=== PATIENT | male | born 1940 | race Caucasian/White ===

== ENCOUNTER 2016-07-06 20:03 | Observation (INO) | payer MEDICARE ==
[2016-07-06 20:04] VITALS: BP 172/83; PULSE 127; RESP 16; TEMP 98.4; O2SAT 100
[2016-07-06 20:25] VITALS: BP 148/79; PULSE 126; RESP 22; O2SAT 98
[2016-07-06] MEDS ORDERED: DILTIAZEM HCL 25 MG/5 ML VIAL IV ONE (20:30)
--- NOTE | 2016-07-06 20:39 | PD ---
HPI Chief Complaint: Cardiac Complaint Time Seen by Provider: 20:15 Travel History International Travel<30 days: No Contact w/Intl Traveler<30days: No History of Present Illness HPI 76-year-old male complains of rapid heartbeat. Patient states that he was eating and started having a lot of burping and started having substernal chest discomfort. Patient denies any chest pain radiation. Patient denies any nausea diaphoresis. Patient has history of atrial fibrillation status post ablation procedure in December 2015. Patient has history of CAD status post stents placement. Patient's on Coumadin. Patient also has history hypertension , diabetes, hyperlipidemia. Patient is a nonsmoker. Patient denies any history of ND. Patient states that the chest discomfort lasted about 2 hours and resolved completely now. Patient denies any chest discomfort now. PFSH Past Medical History Hx Anticoagulant Therapy: Yes Cardiovascular Problems: Yes Coronary Artery Disease: Yes Diabetes: Yes (type II) Patient Takes Glucophage: No Diverticulitis: Yes Pancreatitis: Yes Tetanus Vaccination: Unknown Influenza Vaccination: Yes Past Surgical History Surgical History: No Previous Surgery Abdominal Surgery: Yes (colon and reversal) Eye Surgery: Yes (cataract) Joint Replacement: Yes (lt shoulder) Social History Alcohol Use: No Tobacco Use: No Substance Use: No Allergies-Medications (Allergen,Severity, Reaction): Coded Allergies: No Known Allergies (Unverified , 07/06/16) Reported Meds & Prescriptions Reported Meds & Active Scripts Active Reported Lantus Inj (Insulin Glargine) 1,000 Unit/10 Ml Vial 21 Units SQ HS Cabergoline 0.5 Mg Tab 0.5 Mg PO 2XWEEK Citrucel (Methylcellulose) 500 Mg Tab 2 Tab PO DAILY Doxazosin (Doxazosin Mesylate) 4 Mg Tab 6 Mg PO DAILY Nexium (Esomeprazole DR) 40 Mg Capdr 40 Mg PO DAILY Warfarin 7.5 Mg Tab 7.5 Mg PO DAILY Starlix (Nateglinide) 60 Mg Tab 60 Mg PO TIDAC Metoprolol Tartrate 50 Mg Tab 50 Mg PO DAILY Review of Systems General / Constitutional: No: Fever Eyes: No: Visual changes HENT: No: Headaches Cardiovascular: Positive: Chest Pain or Discomfort, Tachycardia Respiratory: No: Shortness of Breath Gastrointestinal: No: Abdominal Pain Genitourinary: No: Dysuria Musculoskeletal: No: Pain Skin: No Rash Neurologic: No: Weakness Psychiatric: No: Depression Endocrine: No: Polydipsia Hematologic/Lymphatic: No: Easy Bruising Physical Exam Narrative GENERAL: Well-nourished, well-developed patient. SKIN: Focused skin assessment warm/dry. HEAD: Normocephalic. EYES: No scleral icterus. No injection or drainage. NECK: Supple, trachea midline. No JVD or lymphadenopathy. CARDIOVASCULAR: Mild tachycardia rate and rhythm without murmurs, gallops, or rubs. RESPIRATORY: Breath sounds equal bilaterally. No accessory muscle use. GASTROINTESTINAL: Abdomen soft, non-tender, nondistended. MUSCULOSKELETAL: No cyanosis, or edema. BACK: Nontender without obvious deformity. No CVA tenderness. Neurologic exam normal. Data Data Last Documented VS Vital Signs Date Time Temp Pulse Resp B/P Pulse Ox O2 Delivery O2 Flow Rate FiO2 07/06/16 20:51 84 18 119/58 98 Nasal Cannula 2 07/06/16 20:04 98.4 Orders Complete Blood Count With Diff (07/06/16 20:30) Comprehensive Metabolic Panel (07/06/16 20:30) Creatine Kinase (Cpk) (07/06/16 20:30) Troponin I (07/06/16 20:30) B-Type Natriuretic Peptide (07/06/16 20:30) Prothrombin Time / Inr (Pt) (07/06/16 20:30) Act Partial Throm Time (Ptt) (07/06/16 20:30) Urinalysis - C+S If Indicated (07/06/16 20:30) Thyroid Stimulating Hormone (07/06/16 20:30) Chest, Single Ap (07/06/16 20:30) Iv Access Insert/Monitor (07/06/16 20:30) Ecg Monitoring (07/06/16 20:30) Oximetry (07/06/16 20:30) Sodium Chlor 0.9% 1000 Ml Inj (Ns 1000 M (07/06/16 20:30) Diltiazem Inj (Cardizem Inj) (07/06/16 20:30) Electrocardiogram (07/06/16 ) Electrocardiogram (07/06/16:17) Metoprolol Tartrate (Lopressor) (07/06/16 22:30) Labs Laboratory Tests Test 07/06/16 20:25 White Blood Count 7.8 TH/MM3 Red Blood Count 4.39 MIL/MM3 Hemoglobin 13.4 GM/DL Hematocrit 38.7 % Mean Corpuscular Volume 88.1 FL Mean Corpuscular Hemoglobin 30.6 PG Mean Corpuscular Hemoglobin 34.7 % Concent Red Cell Distribution Width 15.1 % Platelet Count 195 TH/MM3 Mean Platelet Volume 7.9 FL Neutrophils (%) (Auto) 68.5 % Lymphocytes (%) (Auto) 18.7 % Monocytes (%) (Auto) 7.8 % Eosinophils (%) (Auto) 4.3 % Basophils (%) (Auto) 0.7 % Neutrophils # (Auto) 5.4 TH/MM3 Lymphocytes # (Auto) 1.5 TH/MM3 Monocytes # (Auto) 0.6 TH/MM3 Eosinophils # (Auto) 0.3 TH/MM3 Basophils # (Auto) 0.1 TH/MM3 CBC Comment DIFF FINAL Differential Comment Prothrombin Time 18.3 SEC Prothromb Time International 1.6 RATIO Ratio Activated Partial 31.7 SEC Thromboplast Time Sodium Level 139 MEQ/L Potassium Level 4.1 MEQ/L Chloride Level 103 MEQ/L Carbon Dioxide Level 26.7 MEQ/L Anion Gap 9 MEQ/L Blood Urea Nitrogen 24 MG/DL Creatinine 1.63 MG/DL Estimat Glomerular Filtration 41 ML/MIN Rate Random Glucose 197 MG/DL Calcium Level 8.5 MG/DL Total Bilirubin 0.6 MG/DL Aspartate Amino Transf 35 U/L (AST/SGOT) Alanine Aminotransferase 33 U/L (ALT/SGPT) Alkaline Phosphatase 100 U/L Total Creatine Kinase 259 U/L Troponin I LESS THAN 0.02 NG/ML B-Type Natriuretic Peptide 34 PG/ML Total Protein 7.3 GM/DL Albumin 3.9 GM/DL Thyroid Stimulating Hormone 1.350 uIU/ML [address] [place] [address] Medical Decision Making Medical Screen Exam Complete: Yes Emergency Medical Condition: Yes Interpretation(s) 2038 PM. EKG show atrial flutter versus tachycardia with the rate 126. 21:40 PM. Last Impressions Chest X-Ray 07/06/162029 Signed Impressions: Service Date/Time: Wednesday, July 06, 2016 20:44 - CONCLUSION: No acute disease Gilmer Cardona MD 21:40 PM. CBC within normal limit. INR 1.6. 22:04 PM. BUN 24. Creatinine 1.63. GFR 41. Random glucose 197. Cardiac enzymes are normal. BNP 34. Differential Diagnosis Differential diagnosis including sinus tachycardia, atrial flutter with RVR, angina, ND, PE, pneumothorax. Narrative Course 76-year-old male with chest discomfort and tachycardia. The tachycardia could be sinus tachycardia of B atrial flutter with RVR. Normal saline solution 100 cc an hour. Cardizem 10 mg IV given. Cardiac tracing shows atrial flutter with rate around in the 80s. I spoke with Dr. Rhodes, rotor coil taper on-call. Advised increase metoprolol to 50 mg twice a day and serial EKG and cardiac enzyme. Diagnosis Primary Impression: Atrial flutter with rapid ventricular response Additional Impression: Chest pain Qualified Code: R07.9 - Chest pain, unspecified type Admitting Information Admitting Physician Requests: Observation Jasiel Em MD July 06, 2016 20:39
[2016-07-06] MEDS ORDERED: METO50TA PO (20:41)
[2016-07-06] MEDS ORDERED: LANTUS2P SQ (20:41)
[2016-07-06] MEDS ORDERED: STAR60TA PO (20:41)
[2016-07-06] MEDS ORDERED: WARF-21 PO (20:41)
[2016-07-06] MEDS ORDERED: CITR500T PO (20:41)
[2016-07-06] MEDS ORDERED: NEXI40CA PO (20:41)
[2016-07-06] MEDS ORDERED: CABE0.5T PO (20:41)
[2016-07-06] MEDS ORDERED: DOXA1TAB34 PO (20:41)
[2016-07-06] MEDS: SODIUM CHLOR 0.9% 1000 ML INJ 1,000 ML IV SCH (20:48)
[2016-07-06 20:49] VITALS: BP 163/92; PULSE 90; O2SAT 98
--- NOTE | 2016-07-06 20:50 | RADRPT ---
EXAM DATE/TIME: 07/06/2016 20:44 [facility] COMPARISON: No previous studies available for comparison. INDICATIONS : Chest pain and shortness of breath. MEDICAL HISTORY : None. SURGICAL HISTORY : 3 cardiac stents. ENCOUNTER: Initial ACUITY: 1 day PAIN SCORE: 3/10 LOCATION: chest FINDINGS: A single view of the chest demonstrates the lungs to be symmetrically aerated without evidence of mas s, infiltrate or effusion. The cardiomediastinal contours are unremarkable. Left shoulder arthroplas ty noted.. CONCLUSION: No acute disease Gilmer Cardona MD on July 06, 2016 at 20:48 Board Certified Radiologist. This report was verified electronically.
[2016-07-06 20:51] VITALS: BP 119/58; PULSE 84; RESP 18; O2SAT 98
[2016-07-06 20:56] LABS: AUTOMATED NEUTROPHIL # 5.4 TH/MM3 (1.8-7.7); BASOPHIL # 0.1 TH/MM3 (0-0.2); BASOPHIL % 0.7 % (0.0-2.0); EOSINOPHIL # 0.3 TH/MM3 (0-0.4); EOSINOPHIL % 4.3 % (0.0-4.0); HEMATOCRIT 38.7 % (39.0-51.0); HEMO FLAGS DIFF FINAL; LYMPH % 18.7 % (9.0-44.0); LYMPHOCYTE # 1.5 TH/MM3 (1.0-4.8); MEAN CELL VOLUME 88.1 FL (80.0-100.0); MEAN CORPUSCULAR HEMOGLOBIN 30.6 PG (27.0-34.0); MEAN CORPUSCULAR HGB CONC 34.7 % (32.0-36.0); MONO % 7.8 % (0.0-8.0); NEUT % 68.5 % (16.0-70.0); PLATELET COUNT 195 TH/MM3 (150-450); RED BLOOD COUNT 4.39 MIL/MM3 (4.50-5.90); RED CELL DISTRIBUTION WIDTH 15.1 % (11.6-17.2); WHITE BLOOD COUNT 7.8 TH/MM3 (4.0-11.0)
[2016-07-06 21:08] LABS: APTT (PATIENT) 31.7 SEC (24.3-30.1); INTERNATIONAL NORMALIZED RATIO 1.6 RATIO; PROTHROMBIN TIME - PATIENT 18.3 SEC (9.8-11.6)
[2016-07-06 21:51] LABS: ALKALINE PHOSPHATASE 100 U/L (45-117); ALT (GPT) 33 U/L (12-78); ANION GAP 9 MEQ/L (5-15); AST (GOT) 35 U/L (15-37); BICARBONATE 26.7 MEQ/L (21.0-32.0); BLOOD UREA NITROGEN 24 MG/DL (7-18); CHLORIDE 103 MEQ/L (98-107); CREATINE KINASE 259 U/L (39-308); GLOMERULAR FILTRATION RATE 41 ML/MIN (>89); POTASSIUM 4.1 MEQ/L (3.5-5.1); SODIUM (NA) 139 MEQ/L (136-145); TOTAL BILIRUBIN ADULT 0.6 MG/DL (0.2-1.0)
[2016-07-06] MEDS ORDERED: METOPROLOL TARTRATE 50 MG TAB PO ONE (22:30)
[2016-07-06 22:33] VITALS: BP 125/90; PULSE 94; RESP 18; O2SAT 97
[2016-07-06 22:42] LABS: BLOOD, URINE NEG (NEG); GLUCOSE,URINE NEG (NEG); KETONE, URINE NEG (NEG); NITRITE,URINE NEG (NEG); URINE COLOR LIGHT-YELLOW (YELLW/STRAW)
[2016-07-06 22:44] LABS: COMMENT (UR) CULT NOT INDICATED; CULTURE IF INDICATED CULT NOT INDICATED
[2016-07-06] MEDS ORDERED: NALOXONE HCL 0.4 MG/ML AMP IV PRN (23:00)
[2016-07-06] MEDS ORDERED: DEXTROSE 50% IN WATER 50 ML VIAL(D50) IV PUSH PRN (23:00)
[2016-07-06] MEDS ORDERED: SODIUM CHLORIDE 0.9% FLUSH 10 ML FLUSH IV FLUSH PRN (23:00)
[2016-07-06] MEDS ORDERED: GLUCAGON 1 MG/ML VIAL OTHER PRN (23:00)
[2016-07-06] MEDS ORDERED: ONDANSETRON HCL 4 MG/2 ML VIAL IVP PRN (23:00)
[2016-07-07] MEDS ORDERED: ENOXAPARIN SODIUM 100 MG/ML SYRINGE SQ SCH
[2016-07-07 00:50] VITALS: BP 128/78; PULSE 87; RESP 18; TEMP 98.9; O2SAT 99
[2016-07-07] MEDS: SODIUM CHLOR 0.9% 1000 ML INJ 1,000 ML IV SCH (00:52)
[2016-07-07 01:25] VITALS: PULSE 86
[2016-07-07] MEDS ORDERED: WARFARIN SOD 10 MG TAB PO ONE (02:00)
--- NOTE | 2016-07-07 02:28 | HHI.HP ---
HPI Service [facility] Primary Care Physician Non-Staff Admission Diagnosis atrial flutter with RVR. 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 After eating dinner patient felted what he described as indigestion with burping with substernal chest pressure. Patient reports chest pain was more of a dull pressure the left side of his chest with. Denies radiation of the pain, nausea, or diaphoresis. Patient checked his heart rate and it was 120-130 therefore he proceeded to ER for further evaluation. On arrival initial EKG revealed Atrial Fibrillation/Flutter. Patient was given metoprolol 50 mg by mouth and Cardizem 10 mg IV push which relieved chest pain. Patient reports his last stress test and cardiac cath January 2016 reports one partial blockage which did not require a stent. Patient follows with medicinal chemist in [place] History of colon resection and since then he has intermitted diarrhea- last diarrhea episode was Monday last for one day. Denies fever, chills, nausea, vomiting, black stool, red bloody stools, denies recent long travel os shortness of breath. Patient regularly takes Coumadin but has been off Coumadin 3 times recently for neck injections. INR today 1.6 EKG on arrival reveals atrial fibrillation heart rate 79 Review of Systems Except as stated in HPI: all other systems reviewed are Neg Past Family Social History Past Medical History HTN, DM, hyperlipidemia, atrial fibrillation s/p Cardiac ablation December 2015 , CAD s/p cardiac stents 1998 and 1999 also deaf Past Surgical History cardiac stents 1998 and 1999 cardiac ablation colon resection with colostomy later reversed 2003 for diverticulosis Left shoulder replacement 2007 bilateral cataract surgery L foot bunionectomy Reported Medications Lantus Inj (Insulin Glargine) 1,000 Unit/10 Ml Vial 21 Units SQ HS Cabergoline 0.5 Mg Tab 0.5 Mg PO 2XWEEK Citrucel (Methylcellulose) 500 Mg Tab 2 Tab PO DAILY Doxazosin (Doxazosin Mesylate) 4 Mg Tab 6 Mg PO HS Nexium (Esomeprazole DR) 40 Mg Capdr 40 Mg PO DAILY Warfarin 7.5 Mg Tab 7.5 Mg PO HS Starlix (Nateglinide) 60 Mg Tab 60 Mg PO TIDAC Metoprolol Tartrate 50 Mg Tab 50 Mg PO HS Allergies: Coded Allergies: No Known Allergies (Unverified , 07/06/16) Active Ordered Medications Current Medications Medications (Trade) Dose Ordered Sig/Teo Route Start Time Stop Time Status Last Admin (NS 1000 ml Inj) 1,000 ml @ 100 mls/hr Q10H IV 07/06/16 20:30 07/07/16 00:52 (NS Flush) 2 ml UNSCH PRN IV FLUSH 07/06/16 23:00 (NS Flush) 2 ml BID IV FLUSH 07/07/16 09:00 (Zofran Inj) 4 mg Q6H PRN IVP 07/06/16 23:00 (Narcan Inj) 0.4 mg UNSCH PRN IV 07/06/16 23:00 (Lovenox Inj) 90 mg Q24H SQ 07/07/16 00:00 07/06/16 23:39 (D50w (Vial) Inj) 25 ml UNSCH PRN IV PUSH 07/06/16 23:00 (Glucagon Inj) 1 mg UNSCH PRN OTHER 07/06/16 23:00 Family History Sister had fibromyalgia Mother colon CA ay 98 years old Social History 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 SKIN: No rashes, ecchymoses or lesions. Cool and dry. HEAD: Atraumatic. Normocephalic. No temporal or scalp tenderness. EYES:Extraocular motions intact. No scleral icterus. No injection or drainage. CARDIOVASCULAR: Regular rate and rhythm without murmurs, gallops, or rubs. RESPIRATORY: Clear to auscultation. Breath sounds equal bilaterally. No wheezes , rales, or rhonchi. GASTROINTESTINAL: Abdomen soft, non-tender, nondistended. No guarding. MUSCULOSKELETAL: Extremities without clubbing, cyanosis, or edema. No joint tenderness, effusion, or edema noted. No calf tenderness. Negative Homans sign bilaterally. NEUROLOGICAL: Awake and alert. No focal deficits. Motor and sensory grossly within normal limits. Five out of 5 muscle strength in all muscle groups. Normal speech. Laboratory Laboratory Tests Test 07/06/16 07/06/16 20:25 22:05 White Blood Count 7.8 Red Blood Count 4.39 Hemoglobin 13.4 Hematocrit 38.7 Mean Corpuscular Volume 88.1 Mean Corpuscular Hemoglobin 30.6 Mean Corpuscular Hemoglobin 34.7 Concent Red Cell Distribution Width 15.1 Platelet Count 195 Mean Platelet Volume 7.9 Neutrophils (%) (Auto) 68.5 Lymphocytes (%) (Auto) 18.7 Monocytes (%) (Auto) 7.8 Eosinophils (%) (Auto) 4.3 Basophils (%) (Auto) 0.7 Neutrophils # (Auto) 5.4 Lymphocytes # (Auto) 1.5 Monocytes # (Auto) 0.6 Eosinophils # (Auto) 0.3 Basophils # (Auto) 0.1 CBC Comment DIFF FINAL Differential Comment Prothrombin Time 18.3 Prothromb Time International 1.6 Ratio Activated Partial 31.7 Thromboplast Time Sodium Level 139 Potassium Level 4.1 Chloride Level 103 Carbon Dioxide Level 26.7 Anion Gap 9 Blood Urea Nitrogen 24 Creatinine 1.63 Estimat Glomerular Filtration 41 Rate Random Glucose 197 Calcium Level 8.5 Total Bilirubin 0.6 Aspartate Amino Transf 35 (AST/SGOT) Alanine Aminotransferase 33 (ALT/SGPT) Alkaline Phosphatase 100 Total Creatine Kinase 259 Troponin I LESS THAN 0.02 B-Type Natriuretic Peptide 34 Total Protein 7.3 Albumin 3.9 Thyroid Stimulating Hormone 1.350 3rd Gen Urine Color LIGHT-YELLOW Urine Turbidity CLEAR Urine pH 5.0 Urine Specific [place] 1.012 Urine Protein NEG Urine Glucose (UA) NEG Urine Ketones NEG Urine Occult Blood NEG Urine Nitrite NEG Urine Bilirubin NEG Urine Urobilinogen LESS THAN 2.0 Urine Leukocyte Esterase NEG Urine RBC LESS THAN 1 Urine WBC LESS THAN 1 Microscopic Urinalysis Comment CULT NOT INDICATED Result Diagram: 07/06/16202407/06/162024 Imaging Last Impressions Chest X-Ray 07/06/162029 Signed Impressions: Service Date/Time: Wednesday, July 06, 2016 20:44 - CONCLUSION: No acute disease Gilmer Cardona MD Assessment and Plan Problem List: (1) Chest pain ICD Code: R07.9 Status: Acute (2) Atrial fibrillation ICD Code: I48.91 Status: Acute Assessment and Plan This is a 76 year old male patient with a past medical history which includes HTN, DM, hyperlipidemia, atrial fibrillation s/p Cardiac ablation December 2015 , CAD s/p cardiac stents 1998 and 1999 also deaf. After eating dinner patient felted what he described as indigestion with burping with substernal chest pressure. Denies radiation of the pain, nausea, or diaphoresis. Patient Patient checked his heart rate and it was 120-130 therefore he proceeded to ER for further evaluation. On arrival initial EKG revealed Atrial Fibrillation rate 79. Atrial Fibrillation EKG reviewed and reveals: Atrial Fibrillation rate 79 bpm Patient given metoprolol 50 mg PO in ER and Cardizem 10 mg IV x 1 Continuous leaf conditioner helper Consult cardiology- ER spoke with Dr. Rhodes continue Coumadin give 10mg PO now and resume home dose Lovenox 90mg Q24H until INR equal or less than 2.0 Subtherapeutic INR Coumadin give 10mg PO now and resume home dose Lovenox 90mg Q24H until INR equal or less than 2.0 Chest pain likely related to A Fib/Flutter with RVR serial troponin continuous leaf conditioner helper CXR reviewed and reveals no acute finding DM accu checks ACHS with SSI coverage DVT prophylaxis patient on Lovenox and Coumadin Discussed with ER provider, nursing and patient Written by Jeri Fernandez, acting as scribe for Dr. Chiu on 07/07/16 at 02: 28. This note was transcribed by scribe [Jeri Fernandez]. I, Dr. Chris Chiu personally performed the history, physical exam, and medical decision making; and confirmed the accuracy of the information in the transcribed note. Authenticated by Dr. Chris Chiu on 07/07/16 at 02:28. Problem Qualifiers (1) Chest pain: Qualified Code: R07.9 - Chest pain, unspecified type Jeri Fernandez July 07, 2016 02:28 Chris Chiu MD Aug 08, 2016 12:17 Chest pain likely related to A Fib/Flutter with RVR serial troponin continuous leaf conditioner helper DM accu checks ACHS with SSI coverage DVT prophylaxis patient on Lovenox and Coumadin Discussed with ER provider, nursing and patient Written by Jeri Fernandez, acting as scribe for Dr. Chiu on 07/07/16 at 02: 28. Jeri Fernandez July 07, 2016 02:28
[2016-07-07] MEDS ORDERED: PILL SPLITTER OTHER PRN (02:30)
[2016-07-07 03:42] LABS: AUTOMATED NEUTROPHIL # 4.7 TH/MM3 (1.8-7.7); BASOPHIL # 0.1 TH/MM3 (0-0.2); EOSINOPHIL # 0.4 TH/MM3 (0-0.4); HEMATOCRIT 36.1 % (39.0-51.0); HEMO FLAGS DIFF FINAL; LYMPH % 22.1 % (9.0-44.0); LYMPHOCYTE # 1.6 TH/MM3 (1.0-4.8); MEAN CELL VOLUME 88.9 FL (80.0-100.0); MEAN CORPUSCULAR HEMOGLOBIN 30.1 PG (27.0-34.0); MEAN CORPUSCULAR HGB CONC 33.8 % (32.0-36.0); MONO % 8.7 % (0.0-8.0); NEUT % 63.2 % (16.0-70.0); PLATELET COUNT 161 TH/MM3 (150-450); RED BLOOD COUNT 4.06 MIL/MM3 (4.50-5.90); RED CELL DISTRIBUTION WIDTH 14.6 % (11.6-17.2); WHITE BLOOD COUNT 7.5 TH/MM3 (4.0-11.0)
[2016-07-07 04:16] LABS: CREATINE KINASE 184 U/L (39-308)
[2016-07-07 04:21] LABS: BICARBONATE 23.8 MEQ/L (21.0-32.0); POTASSIUM 4.1 MEQ/L (3.5-5.1)
[2016-07-07 04:38] VITALS: BP 120/67; PULSE 89; RESP 18; TEMP 97.8; O2SAT 98
[2016-07-07] MEDS: INSULIN ASPART SUPPLEMENTAL SCALE SQ SCH ×2 (06:43→12:58)
[2016-07-07 07:33] VITALS: BP 122/76; PULSE 87; RESP 18; TEMP 97.9; O2SAT 97
[2016-07-07] MEDS ORDERED: PANTOPRAZOLE SOD 40 MG DELAYED RELEASE TAB PO SCH (09:00)
[2016-07-07] MEDS ORDERED: SODIUM CHLORIDE 0.9% FLUSH 10 ML FLUSH IV FLUSH SCH (09:00)
[2016-07-07 10:26] LABS: CREATINE KINASE 174 U/L (39-308)
[2016-07-07 10:39] VITALS: PULSE 88
[2016-07-07] MEDS ORDERED: METOPROLOL TARTRATE 25 MG TAB PO SCH (11:00)
--- NOTE | 2016-07-07 11:25 | HHI.PR ---
Subjective Remarks Follow up afib with RVR and chest pain. Patient states he had chest pain after eating a big meal yesterday and it eventually went away, but he continued to have palpitations. He did state he was working outside and did not feel he was drinking enough water. Upon admission labs showed RENATA. Patient states since admission he has only has one episode of palpitations when he got up this morning to use the bathroom. Denies any nausea, vomiting, dizziness or sob. He sees a grief counsellor in [place] and plans to see him August 04, he underwent an ablation in Dec 2015. Objective Vitals Vital Signs Date Time Temp Pulse Resp B/P Pulse Ox O2 Delivery O2 Flow Rate FiO2 07/07/16 10:39 88 07/07/16 07:33 97.9 87 18 122/76 97 07/07/16 04:38 97.8 89 18 120/67 98 07/07/16 01:25 86 07/07/16 00:50 98.9 87 18 128/78 99 07/06/16 22:33 94 18 125/90 97 Nasal Cannula 2 07/06/16 20:51 84 18 119/58 98 Nasal Cannula 2 07/06/16 20:49 90 163/92 98 Nasal Cannula 2 07/06/16 20:27 122 16 2 07/06/16 20:25 126 22 148/79 98 Nasal Cannula 2 07/06/16 20:04 98.4 127 16 172/83 100 Room Air Result Diagram: 07/07/16 0312 07/07/16 0312 Other Results Laboratory Tests Test 07/06/16 07/06/16 07/07/16 07/07/16 20:25 22:05 03:12 08:58 Prothrombin Time 18.3 SEC Prothromb Time International 1.6 RATIO Ratio Activated Partial 31.7 SEC Thromboplast Time Total Bilirubin 0.6 MG/DL Aspartate Amino Transf 35 U/L (AST/SGOT) Alanine Aminotransferase 33 U/L (ALT/SGPT) Alkaline Phosphatase 100 U/L B-Type Natriuretic Peptide 34 PG/ML Total Protein 7.3 GM/DL Albumin 3.9 GM/DL Thyroid Stimulating Hormone 1.350 uIU/ML 3rd Gen Urine Color LIGHT-YELLOW Urine Turbidity CLEAR Urine pH 5.0 Urine Specific [place] 1.012 Urine Protein NEG mg/dL Urine Glucose (UA) NEG mg/dL Urine Ketones NEG mg/dL Urine Occult Blood NEG Urine Nitrite NEG Urine Bilirubin NEG Urine Urobilinogen LESS THAN 2.0 MG/DL Urine Leukocyte Esterase NEG Urine RBC LESS THAN 1 /hpf Urine WBC LESS THAN 1 /hpf Microscopic Urinalysis Comment CULT NOT INDICATED White Blood Count 7.5 TH/MM3 Red Blood Count 4.06 MIL/MM3 Hemoglobin 12.2 GM/DL Hematocrit 36.1 % Mean Corpuscular Volume 88.9 FL Mean Corpuscular Hemoglobin 30.1 PG Mean Corpuscular Hemoglobin 33.8 % Concent Red Cell Distribution Width 14.6 % Platelet Count 161 TH/MM3 Mean Platelet Volume 7.6 FL Neutrophils (%) (Auto) 63.2 % Lymphocytes (%) (Auto) 22.1 % Monocytes (%) (Auto) 8.7 % Eosinophils (%) (Auto) 5.0 % Basophils (%) (Auto) 1.0 % Neutrophils # (Auto) 4.7 TH/MM3 Lymphocytes # (Auto) 1.6 TH/MM3 Monocytes # (Auto) 0.7 TH/MM3 Eosinophils # (Auto) 0.4 TH/MM3 Basophils # (Auto) 0.1 TH/MM3 CBC Comment DIFF FINAL Differential Comment Sodium Level 142 MEQ/L Potassium Level 4.1 MEQ/L Chloride Level 109 MEQ/L Carbon Dioxide Level 23.8 MEQ/L Anion Gap 9 MEQ/L Blood Urea Nitrogen 22 MG/DL Creatinine 1.24 MG/DL Estimat Glomerular Filtration 57 ML/MIN Rate Random Glucose 160 MG/DL Calcium Level 8.3 MG/DL Magnesium Level 2.1 MG/DL Total Creatine Kinase 174 U/L Troponin I LESS THAN 0.02 NG/ML Imaging Last Impressions Chest X-Ray 07/06/162029 Signed Impressions: Service Date/Time: Wednesday, July 06, 2016 20:44 - CONCLUSION: No acute disease Gilmer Cardona MD Objective Remarks GENERAL: Well nourished male in no distress SKIN: Warm and dry. HEAD: Atraumatic. Normocephalic. EYES: Pupils equal and round. No scleral icterus. No injection or drainage. ENT: No nasal bleeding or discharge. Mucous membranes pink and moist. NECK: Trachea midline. No JVD. CARDIOVASCULAR: afib rhythm with controlled rate RESPIRATORY: No accessory muscle use. Clear to auscultation. Breath sounds equal bilaterally. GASTROINTESTINAL: Abdomen soft, non-tender, nondistended. BSx4 MUSCULOSKELETAL: Extremities without clubbing, cyanosis, or edema. No obvious deformities. NEUROLOGICAL: Awake and alert. Motor grossly within normal limits. . Normal speech. PSYCHIATRIC: Appropriate mood and affect; insight and judgment normal. Procedures No procedures performed. Medications and IVs Current Medications Medications (Trade) Dose Ordered Sig/Teo Route Start Time Stop Time Status Last Admin (NS 1000 ml Inj) 1,000 ml @ 100 mls/hr Q10H IV 07/06/16 20:30 07/07/16 00:52 (NS Flush) 2 ml UNSCH PRN IV FLUSH 07/06/16 23:00 (NS Flush) 2 ml BID IV FLUSH 07/07/16 09:00 (Zofran Inj) 4 mg Q6H PRN IVP 07/06/16 23:00 (Narcan Inj) 0.4 mg UNSCH PRN IV 07/06/16 23:00 (Lovenox Inj) 90 mg Q24H SQ 07/07/16 00:00 07/06/16 23:39 (D50w (Vial) Inj) 25 ml UNSCH PRN IV PUSH 07/06/16 23:00 (Glucagon Inj) 1 mg UNSCH PRN OTHER 07/06/16 23:00 (Cardura) 6 mg HS PO 07/07/16 21:00 (Coumadin) 7.5 mg DAILY@16 PO 07/07/16 16:00 (Protonix) 40 mg DAILY PO 07/07/16 09:00 07/07/16 09:32 (Coumadin Booklet) 1 ONCE ONCE OTHER 07/07/16 16:00 07/07/16 16:01 (Pill Splitter) 1 ea UNSCH PRN OTHER 07/07/16 02:30 (Lopressor) 25 mg Q12HR PO 07/07/16 11:00 Urinary Catheter: No Vascular Central Line Catheter: No A/P Problem List: (1) Chest pain ICD Code: R07.9 Status: Acute (2) Atrial fibrillation ICD Code: I48.91 Status: Acute (3) Acute kidney injury ICD Code: N17.9 Status: Acute Assessment and Plan This is a 76 year old male patient with a past medical history which includes HTN, DM, hyperlipidemia, atrial fibrillation s/p Cardiac ablation December 2015 , CAD s/p cardiac stents 1998 and 1999 also deaf. After eating dinner patient felted what he described as indigestion with burping with substernal chest pressure. Denies radiation of the pain, nausea, or diaphoresis. Patient Patient checked his heart rate and it was 120-130 therefore he proceeded to ER for further evaluation. On arrival initial EKG revealed Atrial Fibrillation rate 79. Atrial Fibrillation EKG reviewed and reveals: Atrial Fibrillation rate 79 bpm -Patient given metoprolol 50 mg PO in ER and Cardizem 10 mg IV x 1, Change metoprolol to 25mg BID -Continuous prepress technician -Consult cardiology- ER MD spoke with Dr. Rhodes, awaiting recommendations -continue Coumadin give 10mg PO now and resume home dose -Lovenox 90mg Q24H until INR equal or less than 2.0 Subtherapeutic INR, INR 1.6 -Cont home dose -Cont to monitor Chest pain likely related to A Fib/Flutter with RVR, resolved Chest xray unremarkable -serial troponin >.02 -continuous prepress technician RENATA, creatine 1.6-->1.24, likely dehydration, electrolytes WNL -Cont IVF DM, chronic -accu checks ACHS with SSI coverage DVT prophylaxis patient on Lovenox and Coumadin Seen in his bedroom status post Cardiology consult okay to discharge from Medicine standpoint, and follow with movement education specialist as outpatient and PCP. he wants to go home and was cleared by movement education specialist. Discharge Planning Discharge Home now. Problem Qualifiers (1) Chest pain: Qualified Code: R07.9 - Chest pain, unspecified type Yessy Cuenca July 07, 2016 11:25 Wagner Zelaya MD July 07, 2016 15:32
[2016-07-07 11:41] VITALS: BP 151/67; PULSE 75; RESP 18; TEMP 98.5; O2SAT 98
--- NOTE | 2016-07-07 14:18 | MB ---
cc: RONALDO OTT DATE OF CONSULTATION 07/07/2016 REASON FOR CONSULTATION Mr. Rivero is a 76 year-old white male with a history of atrial fibrillation and ablation in December of 2015. He also has a history of coronary artery disease and coronary stents in 1998 and 1999. After dinner yesterday, he felt indigestion, substernal chest pressure with burping which was dull and also on the left side of his chest. At that time, his heart rate was elevated in the 130's and he came to the emergency room. His last stress test and cardiac cath in January of 2016 showed coronary disease which did not require coronary intervention. He is seeing a salt machine operator in [place]. He has not had any exertional angina, dyspnea on exertion, PND, orthopnea or peripheral edema recently. PAST MEDICAL HISTORY Positive for: 1. Hypertension 2. Diabetes mellitus 3. Dyslipidemia 4. Atrial fibrillation with ablation in December 2015 5. Coronary artery disease 6. Coronary stenting in 1998 and 1999 7. Colon resection 8. Colostomy for diverticulosis, later reversed. 9. Left shoulder replacement 10. Bilateral cataract surgery 11. Left foot bunionectomy 12. Hard of hearing MEDICATIONS At home include: 1. Metoprolol 2. Starlix 3. Warfarin 4. Nexium 5. Doxazosin 6. Citrucel 7. Cabergoline 8. Lantus insulin ALLERGIES None SOCIAL HISTORY The patient does not smoke. He drinks alcohol socially. 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 FAMILY HISTORY Negative for heart disease. REVIEW OF SYSTEMS Otherwise negative. PHYSICAL EXAM Blood pressure 151/67, pulse 75 and irregular. HEAD, EYES, EARS, NOSE, AND THROAT: Negative, 2+carotid upstrokes. No bruits. LUNGS: Clear. HEART: Irregular irregular with no murmur, gallop, or rub. ABDOMEN: Soft, no bruits. EXTREMITIES: Without edema. 2+ distal pulses. NEUROLOGIC: Grossly nonfocal. EKG was reviewed and showed atrial flutter with 2:1 block and rapid ventricular response, nonspecific T-wave changes. LABS Hemoglobin 12.2, potassium 4.1, creatinine 1.24, troponin negative times 3. CK 184 and 174, BNP 34. DIAGNOSIS 1. Atypical atrial flutter with rapid ventricular response 2. History of atrial fibrillation, status post ablation 3. Atypical chest pain 4. Coronary artery disease with history of coronary stenting 5. Hypertension 6. Diabetes mellitus DISPOSITION Mr. Rivero has been ruled out for myocardial infarction by enzymes. He is now feeling better. His rate is better controlled, but he is still in atrial flutter with variable block. He has atypical, likely left sided atrial flutter related to his previous atrial fibrillation ablation. I recommend to continue Metoprolol for rate control. I also recommend to continue Cardizem which can be switched to p.o. as well. I recommend to continue anticoagulation with Warfarin. His INR was subtherapeutic and he is not a candidate for Cardioversion at this time until he is therapeutic for at least two weeks. He will most likely need another ablation of his left sided atrial flutter. He will be monitored on telemetry. I will follow him for cardiology during his hospitalization. He will then see his salt machine operator in [place] after discharge. MD WILBERTO Vasquez/NANCY /1:14 PM /2:04 PM CATE
[2016-07-07] MEDS ORDERED: METO25TA3 PO (15:01)
--- NOTE | 2016-07-07 15:53 | EKG ---
Date Performed: 07/07/2016 Time Performed: 04:35:10 PTAGE: 76 years EKG: ATRIAL FIBRILLATION ABNORMAL RHYTHM ECG PREVIOUS TRACING : 07/06/2016 21.03 Compared to prior tracing no significant change DOCTOR: Kyle Miller Interpretating Date/Time 07/07/2016 15:52:30
--- NOTE | 2016-07-07 15:53 | EKG ---
Date Performed: 07/06/2016 Time Performed: 20:17:42 PTAGE: 76 years EKG: ATRIAL FLUTTER/TACHYCARDIA WITH RAPID VENTRICULAR RESPONSE NONSPECIFIC ST & T-WAVE ABNORMAL ITY ABNORMAL RHYTHM ECG NO PREVIOUS TRACING No significant change DOCTOR: Kyle Miller Interpretating Date/Time 07/07/2016 15:51:56
--- NOTE | 2016-07-07 15:53 | EKG ---
Date Performed: 07/06/2016 Time Performed: 21:03:59 PTAGE: 76 years EKG: ATRIAL FLUTTER/TACHYCARDIA ABNORMAL RHYTHM ECG PREVIOUS TRACING 07/06/16 20.17 Compared to prior tracing no significant change DOCTOR: Kyle Miller Interpretating Date/Time 07/07/2016 15:52:21
--- NOTE | 2016-07-07 15:54 | EKG ---
Date Performed: 07/07/2016 Time Performed: 08:45:27 PTAGE: 76 years EKG: ATRIAL FLUTTER/TACHYCARDIA ABNORMAL RHYTHM ECG PREVIOUS TRACING : 07/07/2016 04.35 Compared to prior tracing no significant change DOCTOR: Kyle Miller Interpretating Date/Time 07/07/2016 15:52:37
[2016-07-07] MEDS ORDERED: WARFARIN SOD 7.5 MG TAB PO SCH (16:00)
[2016-07-07] MEDS ORDERED: DOXAZOSIN MESYLATE 4 MG TAB PO SCH (21:00)
== END 2016-07-07 17:34 | disposition home or self-care (01) ==
LOC: NEPE 20:03 → NEDA 22:48 → NEPHCDU 07-07 00:09
PROVIDERS: ADMIT Internal Medicine; ATTEND Internal Medicine
DX: R07.89 Other chest pain (principal); I48.4 Atypical atrial flutter; I10 Essential (primary) hypertension; E78.5 Hyperlipidemia, unspecified; I25.10 Atherosclerotic heart disease of native coronary artery without angina pectoris; E11.9 Type 2 diabetes mellitus without complications; Z95.5 Presence of coronary angioplasty implant and graft; Z96.612 Presence of left artificial shoulder joint; Z79.4 Long term (current) use of insulin; Z79.01 Long term (current) use of anticoagulants; R00.0 Tachycardia, unspecified; K57.92 Diverticulitis of intestine, part unspecified, without perforation or abscess without bleeding; Z79.899 Other long term (current) drug therapy; K30 Functional dyspepsia
CPT/HCPCS: 71010; 80048; 80053; 81001; 82550; 82948; 83735; 83880; 84443; 84484; 85025; 85610; 85730; 93005; 96361; 96374; 99285; G0378; J1650; J1815; J7030